=== PATIENT | male | born 1995 | race Caucasian/White ===

== ENCOUNTER → 2023-10-24 12:45 | Outpatient (BNV) | payer OTHER, SELFPAY | PROVIDERS: Visit Provider Psychiatry & Neurology Psychiatry | DX: F31.77 Bipolar disorder, in partial remission, most recent episode mixed (principal); E71.43 Iatrogenic carnitine deficiency; R74.01 Elevation of levels of liver transaminase levels; F99 Mental disorder, not otherwise specified | CPT/HCPCS: 90792; 90832; 99213; 99214 ==

== ENCOUNTER 2023-10-25 12:43 | Outpatient (REF) | payer OTHER, SELFPAY ==
[2023-10-25 13:04] LABS: MANUAL DIFF FLAG NO
[2023-10-25 13:45] LABS: Estimated Average Glucose 108 mg/dL; Hemoglobin A1C 130.6057 umol/L; Hemoglobin A1c % 5.4 % (<6.0)
[2023-10-25 13:46] LABS: Basophils Percent Auto 0.5 % (0-2); Eosinophils Percent Auto 0.7 % (0-4); Hematocrit 41.6 % (42.0-52.0); Imm Gran Abs Auto 0.08 X10*3/uL (0.00-0.03); Imm Gran Pct Auto 1.4 % (0.0-0.4); Lymphocytes Absolute Auto 2.1 X10*3/uL (1.2-4.9); Lymphocytes Percent Auto 35.6 % (20-40); Mean Corpuscular HGB Conc 36.1 g/dl (31.0-36.0); Mean Corpuscular Hemoglobin 29.9 pg (27.0-33.0); Monocytes Absolute Auto 0.5 X10*3/uL (0.1-1.2); Neutrophils Absolute Auto 3.2 x10*3/uL (2.0-8.3); Neutrophils Percent Auto 53.8 % (45-73); Platelet Count 247 X10*3/uL (160-400); Red Blood Count 5.01 X10*6/uL (4.60-5.80); Red Cell Distribution Width 11.9 % (11.0-16.0); White Blood Count 5.9 X10*3/uL (4.8-10.8)
[2023-10-25 14:32] LABS: Alanine Aminotransferase 156 U/L (0-40); Albumin Level 4.5 g/dL (3.5-5.0); Alkaline Phosphatase 74 U/L (39-117); Anion Gap 15 (12-20); Aspartate Amino Transferase 69 U/L (5-37); Blood Urea Nitrogen 11 mg/dL (9-16); Calcium 9.9 mg/dL (8.4-10.2); Carbon Dioxide 23 mmol/L (22-29); Chloride 105 mmol/L (96-108); Cholesterol 229 mg/dL (<200); Estimated Glomerular Filt Rate > 60; Glucose Fasting 90 mg/dL (60-99); HDL Cholesterol 39 mg/dL (>40); LDL Cholesterol Calculated 131 mg/dL (<100); Magnesium 1.9 mg/dL (1.6-2.6); Potassium 4.2 mmol/L (3.3-5.1); Sodium 139 mmol/L (135-145); Total Protein 7.4 g/dL (6.5-8.0); Triglycerides 299 mg/dL (<150); Valproate 77.6 mcg/mL (50.0-100.0)
[2023-10-25 14:50] LABS: Free T4 (Free Thyroxine) 0.92 ng/dL (0.71-1.85); Thyroid Stimulating Hormone 0.95 uIU/mL (0.32-4.0)
[2023-10-25 14:57] LABS: Folate 12.2 ng/mL (> or = 4.0); Vitamin B12 549 pg/mL (200-900)
[2023-10-26 10:15] LABS: Syphilis Screen Nonreactive (Nonreactive)
[2023-10-26 10:36] LABS: HBS Num1 0.35 mIU/mL (0-7.99); HBc Num1 0.17 S/CO (0.00-0.79); HBsAGNum1 0.26 S/CO (0.00-0.99); HIV AB/AG Nonreactive (Nonreactive); HIV Num 1 0.04 S/CO (0.00-0.99); Hepatitis B Core Antibody Nonreactive (Nonreactive); Hepatitis B Surface Antigen Negative (Negative); ~Hepatitis B Surface Antibody NONREACTIVE (Nonreactive); ~Hepatitis C Antibody Nonreactive (Nonreactive)
[2023-10-30 18:13] LABS: Carnitine Esters 6 umol/L (4-15); Carnitine, Free 11 umol/L (23-59); Carnitine, Total 17 umol/L (30-70); Esterified/Free 0.55 umol/L (0.12-0.39)
== END 2023-10-25 12:44 | disposition home or self-care (01) ==
LOC: HO.LAB 12:43
PROVIDERS: Visit Provider Psychiatry & Neurology Psychiatry
DX: F31.0 Bipolar disorder, current episode hypomanic (principal)
CPT/HCPCS: 36415; 80053; 80061; 80164; 82306; 82379; 82607; 82746; 83036; 83735; 84439; 84443; 85025; 86704; 86706; 86780; 86803; 87340; 87389

== ENCOUNTER 2023-11-08 14:45 | Outpatient (REF) | payer OTHER, SELFPAY ==
[2023-11-08 15:31] LABS: Prothrombin Time 11.8 SEC (11.1-13.3)
[2023-11-08 16:07] LABS: Alanine Aminotransferase 70 U/L (0-40); Albumin Level 4.5 g/dL (3.5-5.0); Alkaline Phosphatase 70 U/L (39-117); Aspartate Amino Transferase 34 U/L (5-37); Bilirubin Direct 0.2 mg/dL (0.0-0.5); Bilirubin Total 0.7 mg/dL (0.0-1.0); C Reactive Protein 0.12 mg/dL (< or = 0.50); Gamma Glutamyl Transpeptidase 196 U/L (11-51); Iron 82 mcg/dL (45-160); Percent Iron Saturation 23 % (15-50); Total Iron Binding Capacity 356 mcg/dL (228-428); Total Protein 7.5 g/dL (6.5-8.0); Unsaturated Iron Binding 274 ug/dL
[2023-11-08 16:21] LABS: Ferritin 175 ng/mL (20-250)
[2023-11-08 19:03] LABS: Erythrocyte Sedimentation Rate 2 MM/HR (0-15)
[2023-11-11 04:33] LABS: Hepatitis A Antibody IgG REACTIVE (Nonreactive); ~Hepatitis A Antibody IgG 1.22 S/CO (0.00-0.99)
[2023-11-11 16:18] LABS: Alpha 1 Anti-trypsin 104 mg/dL (83-199)
[2023-11-12 09:09] LABS: Myoglobin,Serum 26 mcg/L (<=95)
[2023-11-12 12:18] LABS: Copper, plasma 67 mcg/dL (70-175)
[2023-11-12 13:44] LABS: Alpha Fetoprotein 2.1 ng/mL (<6.1)
[2023-11-12 13:52] LABS: Mitochondrial Antibodies NEGATIVE (NEGATIVE)
[2023-11-14 13:42] LABS: Smooth Muscle Antibody <20 U (<20)
== END 2023-11-08 14:46 | disposition home or self-care (01) ==
LOC: HO.LAB 14:45
PROVIDERS: Visit Provider Psychiatry & Neurology Psychiatry
DX: F31.9 Bipolar disorder, unspecified (principal); R74.01 Elevation of levels of liver transaminase levels
CPT/HCPCS: 36415; 80076; 82103; 82105; 82525; 82550; 82728; 82977; 83540; 83874; 85610; 85652; 86015; 86140; 86381; 86708

== ENCOUNTER 2023-11-13 14:21 | Outpatient (REF) | payer OTHER, SELFPAY ==
[2023-11-13 14:49] LABS: Ammonia 54 umol/L (13-55)
== END 2023-11-13 14:22 | disposition home or self-care (01) ==
LOC: HO.LAB 14:21
PROVIDERS: Visit Provider Psychiatry & Neurology Psychiatry
DX: F31.9 Bipolar disorder, unspecified (principal); R74.01 Elevation of levels of liver transaminase levels
CPT/HCPCS: 36415; 82140

== ENCOUNTER 2023-11-14 12:15 | Outpatient (RCR) | payer OTHER, SELFPAY ==
--- NOTE | 2023-10-22 12:58 | PC.NURSE ---
Addendum entered by Nanci Nguyen RN 10/22/23 13:00: Wrong patient. Original Note: Mikhail stated he needs to leave early as his mother is not feeling well. He plans on attending the program tomorrow. [facility] staff is aware.
--- NOTE | 2023-10-22 16:10 | HO.PHP ---
[facility] staff member contacted Mikhail to follow up to see if he will be attending program tomorrow. Mikhail disclosed that he will be in attendance to program tomorrow. [facility] staff member assessed safety, in which he reported no concerns around SI, plan or intent.
[2023-10-23 14:34] VITALS: BP 111/80; PULSE 106; RESP 12; TEMP 36.4
--- NOTE | 2023-10-23 14:36 | PC.NURSE ---
Mikhail is a 28 /y/o male who was referred to [facility] from his Psychiatrist for increased depression and bipolar disorder. He has had several inpatient admits at [facility] in Jun 2023 and Jul-August 2023. Mikhail is alert and oriented x 4, no acute distress, well groomed and cooperative. Mikhail will reply to questions with one or two word answers and with little eye contact. Speech is clear, soft, posture is tense and guarded. Mikhail reports he was diagnosed with bipolar approx 6 years ago and has recently had a tough time and a lot of ups and downs . He denies pain and reports has been compliant with current med regime. His current support system is his mother and he states he has had group therapy in the past that has helped. He denies thoughts of SI and denies plan or intent.
--- NOTE | 2023-10-24 16:50 | HO.PHP ---
Client's case has been opened and reviewed in treatment team.
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
--- NOTE | 2023-10-25 16:38 | HO.PHP ---
PHP staff member faxed over a referral for Med management and OP therapy for Mikhail at the [facility] location. PHP staff member is awaiting a call back with the appointment dates and times.
--- NOTE | 2023-10-28 15:25 | HO.PHP ---
[facility] staff member received a voicemail from Mikhail stating that he would not be in attendance to program today due to a family emergency. [facility] staff member followed up with Mikhail, in which he reported no safety concerns and stated he will be in the program tomorrow.
--- NOTE | 2023-10-30 08:43 | HO.PHP ---
PHP staff member received a phone call from Mikhail who stated that he is running late to program due to the next bus not coming till later. Mikhail stated he will be in attendance to program a little after 9:30 AM. [facility] staff member was receptive.
--- NOTE | 2023-10-30 14:44 | HO.PHP ---
Mikhail never presented to group one, in which [facility] staff member reached out to Mikhail on two separate occassions. A voicemail was left on Mikhail's phone encouraging him to call back or we will have to proceed with contacting his Emergency Contact. Mikhail never returned the phone call, in which a call was initiated to his Emergency Contact. Mikhail's Emergency Contact also did not answer the phone and a VM was left noting our concern due to Mikhail not showing up to program when he stated he was on his way. Mikhail's emergency contact never returned the phone call. [facility] staff member was about to initiate a wellness check when Mikhail called. Mikhail informed [facility] staff that he wasn't going to make it to program for the 9:45 AM time. [facility] staff member assessed safety, in which he reported no SI, plan or intent. Mikhail will be in attendance to [facility] tomorrow.
--- NOTE | 2023-11-01 11:54 | PC.NURSE ---
Patient moved to this area a few months ago from [place]. PCP providers in this area do not take his insurance and I was told he would need to change his insurance in order to get a PCP in this area. Mikhail is aware and agreed to meet with financial assistance to talk about insurance options. I called and left financial assistance a message to call me back.
--- NOTE | 2023-11-01 23:44 | HO.PHPPROGNO ---
Subjective Subjective Date of Service: 11/01/23 Reason For Visit: bipolar Interim History: Patient seen for follow up. He reports no major issues. Has found program helpful, his first time engaging in a program. Says he has been working on Specifically my anger and healthy coping and meds. Mood is good, anger under control. Depression not too much . Denies SI. We reviewed his lab work, VPA level therapuetic at 77, but he has deranged LFTs . He denies a I share my concerns that the VPA could be causing toxic liver injury, especially that seeing that the VPA is likes driving a carnitine deficiency. He shares that he had had some lab work done at his PCP recently and there was something about liver changes but said he thought this was just one marker that was mildly elevated and suspects the numbers now sound much higher. His provider said they would monitor. He agrees to trialling oxcarbazepine to see if he tolerates. He is also on Seroquel, which we will maintain for now. He has signed MARLYS so we will see if we can retrieve the last set of labs to see if there has been any significant change. Will also plan to check related labs, rule out other causes of liver disease (Hep panel, HIV). Patient does not have any partticular risk factors per reported history. All lab results reviewed. Other considerations including carbamazepine vs FGA (vs switching SGA) if oxcarbazepine inadequately manages mood/shelly/anger. Sleep, appetite, energy intact. Appears to be mentating at baseline. Denies any problems on ROS. Risks, benefits and potential side effects of oxcarbamazepine reviewed including risks for dizziness, drowsiness, AMS, GI sx, hypernatremia, rashes/SJS, allergic reactions, and risk of inducing seizure upon sudden cessation/withdrawal from medication. Medication Compliance: Yes Side effects from medications: No Attending Groups: Yes Review of Systems Acute medical concerns: Yes As noted, regarding lab work findings which were reviewed with patient Mental Status Exam Mental Status Exam Narrative: Alert, oriented, in no acute distress. Calm, cooperative, engaged. No psychomotor agitation or neurovegetative retardation. Eye contact maintained. Mood good , affect flat. Speech normal. Thought process linear, coherent, mild paucity. Thought content related to stressors, denies hopelessness, SI or HI. No paranoia or delusional content elicited. No evidence of psychosis. Insight and judgment - fair but adequate. 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 Routine lab work next week will follow up with Hep B panel, Hep A, C, HIV, Iron, NH4, YURI, ESR EKG, routine for baseline QTc for medication considerations UDS as indicated Continue to monitor closely Patient educated on: diagnosis, medication risk/benefits and medical condition Informed Consent: understands Reason for contiued partial hosp. stay Substantial Risk for: inability to function, rapid decompensation and med/psych decompensation Certification I certify that partial hospital treatment is medically necessary due to the symptoms and problems resulting from the patient's mental illness and the failure to treat the patient at the partial hospital level of care would likely result in the patient requiring inpatient psychiatric care which could not be prevented at a less intensive level of care. Total time managing care of this patient today __30__ minutes. Discharge Plan Discharge Attending provider: Kaylyn Roberts Medications: New oxcarbazepine 300 mg tablet 300 mg PO BID Qty: 20 0RF L-Carnitine 500 mg tablet See Rx Instructions .ROUTE .COMPLEX Qty: 30 0RF Rx Instructions: must administer with a meal/food; start taking once daily in PM for 8 days, then increase to twice daily (in AM and PM) No Action divalproex [Depakote ER] 500 mg Tablet Extended Release 24 Hr 1,000 mg PO DAILY divalproex [Depakote ER] 500 mg Tablet Extended Release 24 Hr 500 mg PO DAILY MDD 1500 Stand Alone Forms: Patient Portal Discharge page Print Language: Guinean
--- NOTE | 2023-11-05 10:13 | HO.PHP ---
PHP staff member received a phone call from Fiona at [facility] with Mikhail's OP provider appointment. Mikhail's OP therapy Intake appointment is scheduled on November 12, 2023 at 10 AM with Phylicia Espino at [address] [place] [address]. Mikhail's med management appointment is scheduled for December 09, 2023 at 11 AM with Linda Boogie via telehealth.
--- NOTE | 2023-11-05 13:18 | PC.NURSE ---
New PCP appointment on Wednesday March 06, 2024 at 4:00 pm at [facility]. [address] [place] [address]. Office Number to call [phone]. It was recommended that if he wanted a sooner appointment he can call the office as they stated they do have cancellations, Mikhail is aware.
--- NOTE | 2023-11-05 23:14 | P.PNPSP_ITS ---
Subjective Subjective Date of Service: 11/05/23 Reason For Visit: bipolar Interim History: Patient reports having a relaxing long weekend. Says he didnt do much. Says he has had some thoughts about the treatment plan and medication changes we discussed which included trying to lower his Depakote and starting on Trileptal. Dont take this personally, but I have a hard time changing medication. I just get nervous. I've had problems in the past with things getting changed...I've been on Depakote a long time...done so good on it. I'm nervous about changing things or going off of it . He mentions that his previous provider had tried putting him on lithium but he refused and instead agreed to Depakote, saying he did not want anything that would cause harm to any of his organs. Upon inquiry, he says he was unaware that Depakote could cause liver injury, and said that there were no side effects that were relayed to him when he was started on this medication. He expresses dismay and confusion about this. No one ever told me that Depakote can affect your liver?! He shares that one of his doctors recently mentioned something about his liver function being elevated in the past couple months and that they were just taking a wait and watch approach, but says no one had ever mentioned to him that Depakote could cause liver problems or could be aggravating the problem. He was understandably frustrated about medications and doctors in general. I provided empathic listening and support. I explained that many psychiatric medications come with a host of potential risks and adverse effects - and aside from reviewing these with our patients (as well as weighing out the risks and benefits of treatment vs risks and benefits non-treatment) it is the standard of practice for providers to be monitoring our patients for these potential risks and outcomes. We review his lab work from last week which is noted for elevated transaminases as well as carinitine deficiency. We agree to plan that I reach out to his provider to gather more information and see if we can obtain a copy of his previous lab work, which the patient greatly appreciates. Medication Compliance: Yes Side effects from medications: No Attending Groups: Yes Review of Systems Acute medical concerns: No Mental Status Exam Mental Status Exam Narrative: Alert, oriented, in no acute distress. Reserved, cooperative, engaged. Stilted communication style. No psychomotor agitation or neurovegetative retardation. Eye contact maintained. Mood anxious, angry, affect flat, irritable edge, intense for a few minutes without notable lability . Speech normal. Thought process linear, coherent. Thought content related to stressors, denies hopelessness, SI or HI. No paranoia or delusional content elicited. No evidence of psychosis. Insight and judgment - fair but adequate. 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) and related to evolving liver injury with carnitine depletion (carnitine helps protect the liver from oxidative stress) I suspect the recent elevation in LFTs emerged as carnitine was slowly depleted over the past 6 years on VPA) No hx of etoh or drug abuse, or hepatic injury, other known risk factors of hepatic disease, (except perhaps obesity) Will start L-carnitine 500 mg qd (initially with food for better tolerance, then take without food for better absorption) Follow-up lab work ordered including GGT, also rule out other possible causes for LFT derangement, Fe, Cu, a1AT, as well as remaining Hep panel EKG, routine for baseline QTc for medication considerations UDS as indicated Continue to monitor as per protocol Patient educated on: diagnosis, medication risk/benefits and other Informed Consent: understands Reason for contiued partial hosp. stay Substantial Risk for: rapid decompensation and med/psych decompensation Certification I certify that partial hospital treatment is medically necessary due to the symptoms and problems resulting from the patient's mental illness and the failure to treat the patient at the partial hospital level of care would likely result in the patient requiring inpatient psychiatric care which could not be prevented at a less intensive level of care. Total time managing care of this patient today _40___ minutes. Discharge Plan Discharge Attending provider: Kaylyn Roberts Additional Instructions: Mikhail's OP therapy Intake appointment is scheduled on November 12, 2023 at 10 AM with Phylicia Espino at [address] [place] [address]. Mikhail's med management appointment is scheduled for December 09, 2023 at 11 AM with Linda Boogie via telehealth. New PCP appointment on Wednesday March 06, 2024 at 4:00 pm at [facility]. [address] [place] [address]. Office Number to call [phone]. Prior to appointment fax previous medical records to [phone]. It was recommended that if he wanted a sooner appointment he can call the office as they stated they do have cancellations, Mikhail is aware. Medications: New L-Carnitine 500 mg tablet See Rx Instructions .ROUTE .COMPLEX Qty: 30 0RF Rx Instructions: must administer with a meal/food; start taking once daily in PM for 8 days, then increase to twice daily (in AM and PM) quetiapine 200 mg tablet extended release 24 hr 200 mg PO QPM Qty: 14 0RF Rx Instructions: =Dose Increase= quetiapine 400 mg tablet 400 mg PO BEDTIME 30 Days Qty: 30 0RF Continued divalproex [Depakote ER] 500 mg Tablet Extended Release 24 Hr 1,000 mg PO DAILY 30 Days Qty: 60 0RF Discontinued divalproex [Depakote ER] 500 mg Tablet Extended Release 24 Hr 500 mg PO DAILY MDD 1500 Stand Alone Forms: Patient Portal Discharge page Patient Education: Bipolar Disorder (DC) Print Language: Turkmen
--- NOTE | 2023-11-07 23:28 | P.PNPSP_ITS ---
Subjective Subjective Date of Service: 11/07/23 Reason For Visit: bipolar Interim History: Patient requested follow up with provider. He says he tried reaching out to his provider but has not heard back yet. (I also left a message today during our meeting). He says he has had some thoughts about things and says he is now agreeable to making medication changes, and is agreeable to lowering the dose of Depakote. He says he feels more inclined since realizing that he would not be following up with his provider (who is in [facility]) and thus these medication changes would end up being managed by a new provider anyways. He says other than his concerns about medications and liver issues, his mood has been stable and denies any other acute concerns at this time. He is planning to get the lab work done in the morning and will be picking up the carnitine and getting started on this as well. Medication Compliance: Yes Side effects from medications: No Attending Groups: Yes Review of Systems Acute medical concerns: No Mental Status Exam Mental Status Exam Narrative: Alert, oriented, in no acute distress. Calm, cooperative, engaged, reserved, polite. No psychomotor agitation or neurovegetative retardation. Eye contact maintained. Mood okay , affect constricted, less irritable. Speech normal. Thought process linear, coherent, mild paucity. Thought content related to stressors, denies hopelessness, SI or HI. No paranoia or delusional content elic ited. No evidence of psychosis. Insight and judgment fair but adequate. 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 Assessment and Plan: other chronic psychotic illness (paranoia) that persists outside of bipolar episodes r/o Schizoaffective Disorder r/o developmental disorder (4) Transaminitis: Status: Acute Code(s): R74.01 - Elevation of levels of liver transaminase levels Assessment and Plan: likely due to VPA treatment and subsequent carnitine depletion will rule out no other comorbid causes of hepatic injury (5) 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: Status: Acute Code(s): E71.43 - Iatrogenic carnitine deficiency Assessment and Plan: will r/o other causes, but most likely due to VPA Plan Reviewed labwork - elevated transaminases, carnitine deficiency - concerning for liver injury patient agreeable to lowering Depakote ER from 1500 mg to 1000 mg/d (patient declined starting new mood stabilizer at this time, but is willing to titrate quetiapine in the meantime) he understand quetiapine also has liver risks (albeit less than VPA) so as transitional/temporary solution until he has more time for consideration continue L-carnitine supplementation - starting at 500 mg qd w meals, will gradually titrate to 1-2 gm/d in split doses (eventually on empty stomach as tolerated, given better absorption) decrease Depakote ER to 1000 mg qhs increase Seroquel from 400 mg to 600 mg/d (will order the addition 200 mg as ER formulation, to take in the evening with his usual 400 mg tablet) will also bump up the PRN lorazepam 0.5 mg from qd-bid dosing to BID-TID dosing, especially for over weekend while we make med adjustemnts continue Seroquel 400 mg qhs continue other regular medications? Routine lab work from 10/24 reviewed - will start vitamin D as well as carnitine supplementation for deficiencies Also received lab work from provider's office which demonstrates evolving hypertransaminemia, I reviewed findings with patient today Will order labs - Hep A, AI hepatitis, Fe, Cu, CK and other relevant lab work EKG - received series of EKG done over past 2 yrs from OP provider, most recent EKG from 06/2023 w no significant findings or changes from previous UDS as indicated Continue to monitor closely Patient educated on: diagnosis, medication risk/benefits and medical condition Informed Consent: understands Reason for contiued partial hosp. stay Substantial Risk for: rapid decompensation and med/psych decompensation Certification I certify that partial hospital treatment is medically necessary due to the symptoms and problems resulting from the patient's mental illness and the failure to treat the patient at the partial hospital level of care would likely result in the patient requiring inpatient psychiatric care which could not be prevented at a less intensive level of care. Total time managing care of this patient today __30__ minutes. Discharge Plan Discharge Attending provider: Kaylyn Roberts Additional Instructions: Mikhail's OP therapy Intake appointment is scheduled on November 12, 2023 at 10 AM with Phylicia Espino at [address] [place] [address]. Mikhail's med management appointment is scheduled for December 09, 2023 at 11 AM with Linda Boogie via telehealth. New PCP appointment on Wednesday March 06, 2024 at 4:00 pm at [facility]. [address] [place] [address]. Office Number to call [phone]. Prior to appointment fax previous medical records to [phone]. It was recommended that if he wanted a sooner appointment he can call the office as they stated they do have cancellations, Mikhail is aware. Medications: New L-Carnitine 500 mg tablet See Rx Instructions .ROUTE .COMPLEX Qty: 30 0RF Rx Instructions: must administer with a meal/food; start taking once daily in PM for 8 days, then increase to twice daily (in AM and PM) quetiapine 200 mg tablet extended release 24 hr 200 mg PO QPM Qty: 14 0RF Rx Instructions: =Dose Increase= quetiapine 400 mg tablet 400 mg PO BEDTIME 30 Days Qty: 30 0RF Continued divalproex [Depakote ER] 500 mg Tablet Extended Release 24 Hr 1,000 mg PO DAILY 30 Days Qty: 60 0RF Discontinued divalproex [Depakote ER] 500 mg Tablet Extended Release 24 Hr 500 mg PO DAILY MDD 1500 Stand Alone Forms: Patient Portal Discharge page Patient Education: Bipolar Disorder (DC) Print Language: Chinese
--- NOTE | 2023-11-08 14:42 | PC.NURSE ---
Karina from [facility] called and stated our patient Mikhail is outside sitting on a bench outside the main hospital waiting to get lab work done and is staring at people making them feel uncomfortable. I went to see Mikhail to check in on him. He stated they are taking things way out of proportion. He is feeling anxious about getting lab work and sitting on the bench outside until he feels better. He stated he realizes he can get paranoid at times and just needed to sit for a while before he gets lab work. He stated he needs to get his lab work done today before he has medication changes. He has not had any medication changes currently. I asked him if he wanted me to walk with him to the lab and he stated he is able to do this on his own he just needed to sit outside for a while before he gets lab work done. He again reiterated they are blowing things way out of proportion. He stated he wanted to get the lab work done today as he is already here and lives far away from the program. I asked if he was going to be ok and he stated he was. Camden oCllins from [employer]
--- NOTE | 2023-11-11 23:11 | P.PNPSP_ITS ---
Subjective Subjective Date of Service: 11/11/23 Reason For Visit: bipolar Interim History: Patient seen for follow-up, anticipates discharge at the end of the day. Feeling good . Patient reports that his mood remains stable. Depakote was lowered to 1000 mg/day and Seroquel is up to 600 mg at night. He feels less anxious with making these changes, says he is just really focussed on minimizing the amount of Depakote he is on given elevation in LFTs and says it is his goal to see if he can continue to transition off the Depakote and onto another medication that wont impact his liver. For now he is happy with the lower dose of Depakote and says he will continue with current doses of VPA and Seroquel until he sees his provider. He reports mood is great and irritability a lot better . Depression severity improved from a 4 to a 2 out of 10. Irritability and anxiety both improved from a 5 to a 3 out of 10. He says anger is what destroyed my life and what he calls righteous indignation says he is learning to manage this. He denies any SI, HI, AH, VH. Sleep is good , appetite and energy are stable. Medication Compliance: Yes Side effects from medications: No Attending Groups: Yes Review of Systems Acute medical concerns: No Mental Status Exam Mental Status Exam Narrative: Alert, oriented, in no acute distress. Calm, cooperative, polite. Mood stable, affect appropriate. Speech normal. Thought process linear, coherent, more goal- directed. Thought content related to stressors, future-oriented, denies any helplessness, hopelessness or SI.? No aggressive ideation or HI. No paranoia or delusional content elicited. No evidence of psychosis. Insight and judgment fair-good. 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: Status: Acute Code(s): E71.43 - Iatrogenic carnitine deficiency (3) Transaminitis: Status: Acute Code(s): R74.01 - Elevation of levels of liver transaminase levels (4) Mental disorder: Status: Acute Code(s): F99 - Mental disorder, not otherwise specified Assessment and Plan: Autism Spectrum Disorder vs cluster A traits (ie paranoid personality) Plan Discharge from [facility] Continue regular medications Refills sent to pharmacy Will defer further medication management to outpatient provider *Safety plan reviewed *Discharge Diagnoses reviewed with patient, along with treatment course, discharge plan (including medication regime, medication management, potential side effects) as well as treatment rationale were also revisited *Discharge paperwork signed and given to patient, copy sent for scanning to chart Certification I certify that partial hospital treatment is medically necessary due to the symptoms and problems resulting from the patient's mental illness and the failure to treat the patient at the partial hospital level of care would likely result in the patient requiring inpatient psychiatric care which could not be prevented at a less intensive level of care. Total time managing care of this patient today ____ minutes. Discharge Plan Discharge Attending provider: Kaylyn Roberts Additional Instructions: Mikhail's OP therapy Intake appointment is scheduled on November 12, 2023 at 10 AM with Phylicia Espino at [address] [place] [address]. Mikhail's med management appointment is scheduled for December 09, 2023 at 11 AM with Linda Boogie via telehealth. New PCP appointment on Wednesday March 06, 2024 at 4:00 pm at [facility]. [address] [place] [address]. Office Number to call [phone]. Prior to appointment fax previous medical records to [phone]. It was recommended that if he wanted a sooner appointment he can call the office as they stated they do have cancellations, Mikhail is aware. Medications: New L-Carnitine 500 mg tablet See Rx Instructions .ROUTE .COMPLEX Qty: 30 0RF Rx Instructions: must administer with a meal/food; start taking once daily in PM for 8 days, then increase to twice daily (in AM and PM) quetiapine 200 mg tablet extended release 24 hr 200 mg PO QPM Qty: 14 0RF Rx Instructions: =Dose Increase= quetiapine 400 mg tablet 400 mg PO BEDTIME 30 Days Qty: 30 0RF Continued divalproex [Depakote ER] 500 mg Tablet Extended Release 24 Hr 1,000 mg PO DAILY 30 Days Qty: 60 0RF Discontinued divalproex [Depakote ER] 500 mg Tablet Extended Release 24 Hr 500 mg PO DAILY MDD 1500 Stand Alone Forms: Patient Portal Discharge page Patient Education: Bipolar Disorder (DC) Print Language: Peruvian Telehealth Telehealth Telehealth Platform: Other (please specify) Location of provider rendering services: other (private office) Location of patient: other ([facility] Patient Identification confirmed using: Name, : Yes Telehealth method: video Patient verbally consented to treatment: Yes
--- NOTE | 2023-11-12 10:07 | HO.PHP ---
Mikhail was not scheduled today due to having an intake appointment through [facility].
--- NOTE | 2023-11-14 22:15 | P.PNPSP_ITS ---
Subjective Subjective Date of Service: 11/14/23 Reason For Visit: bipolar Interim History: Patient seen for follow-up, anticipating discharge at the end of program today.? No changes in the past few days, continues to do well with medicaiton changes. Reports no acute issues or concerns. Medication compliant, medications well- tolerated. Denies any adverse effects.? Mood is stable.? Denies any hopelessness or SI. Denies thoughts of harming self or others at this time. Denies any aggressive ideation or HI. Denies any paranoia or AH or VH. Sleep, appetite, energy stable. Medication Compliance: Yes Side effects from medications: No Attending Groups: Yes Review of Systems Acute medical concerns: No Mental Status Exam Mental Status Exam Narrative: Alert, oriented, in no acute distress. Calm, cooperative. Mood stable, affect appropriate. Speech normal. Thought process linear, coherent, more goal- directed. Thought content related to stressors, future-oriented, denies any helplessness, hopelessness or SI.? No aggressive ideation or HI. No paranoia or delusional content elicited. No evidence of psychosis. Insight and judgment fair-good. 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: Status: Acute Code(s): E71.43 - Iatrogenic carnitine deficiency (3) Transaminitis: Status: Acute Code(s): R74.01 - Elevation of levels of liver transaminase levels (4) Mental disorder: Status: Acute Code(s): F99 - Mental disorder, not otherwise specified Assessment and Plan: r/o ASD r/o cluster A traits Plan Discharge from [facility] Continue regular medications Refills sent to pharmacy Will defer further medication management to outpatient provider *Safety plan reviewed *Discharge Diagnoses reviewed with patient, as well as treatment course, discharge plan (including medication regime, medication management, potential side effects) as well as treatment rationale were also revisited Patient educated on: diagnosis and medication risk/benefits Informed Consent: understands Reason for contiued partial hosp. stay Substantial Risk for: med/psych decompensation Certification I certify that partial hospital treatment is medically necessary due to the symptoms and problems resulting from the patient's mental illness and the failure to treat the patient at the partial hospital level of care would likely result in the patient requiring inpatient psychiatric care which could not be prevented at a less intensive level of care. Total time managing care of this patient today __30__ minutes. Discharge Plan Discharge Attending provider: Kaylyn Roberts Additional Instructions: Mikhail's OP therapy Intake appointment is scheduled on November 12, 2023 at 10 AM with Phylicia Espino at [address] [place] [address]. Mikhail's med management appointment is scheduled for December 09, 2023 at 11 AM with Linda Boogie via telehealth. New PCP appointment on Wednesday March 06, 2024 at 4:00 pm at [facility]. [address] [place] [address]. Office Number to call [phone]. Prior to appointment fax previous medical records to [phone]. It was recommended that if he wanted a sooner appointment he can call the office as lenard varner stated they do have cancellations, Mikhail is aware. Medications: New L-Carnitine 500 mg tablet See Rx Instructions .ROUTE .COMPLEX Qty: 30 0RF Rx Instructions: must administer with a meal/food; start taking once daily in PM for 8 days, then increase to twice daily (in AM and PM) quetiapine 200 mg tablet extended release 24 hr 200 mg PO QPM Qty: 14 0RF Rx Instructions: =Dose Increase= quetiapine 400 mg tablet 400 mg PO BEDTIME 30 Days Qty: 30 0RF Continued divalproex [Depakote ER] 500 mg Tablet Extended Release 24 Hr 1,000 mg PO DAILY 30 Days Qty: 60 0RF Discontinued divalproex [Depakote ER] 500 mg Tablet Extended Release 24 Hr 500 mg PO DAILY MDD 1500 Stand Alone Forms: Patient Portal Discharge page Patient Education: Bipolar Disorder (DC) Print Language: Syrian
== END 2023-11-14 23:59 | disposition home or self-care (01) ==
LOC: HO.PHPA 12:15
PROVIDERS: Visit Provider Psychiatry & Neurology Psychiatry
DX: F31.77 Bipolar disorder, in partial remission, most recent episode mixed (principal); F63.89 Other impulse disorders; F60.0 Paranoid personality disorder; R74.01 Elevation of levels of liver transaminase levels; E71.43 Iatrogenic carnitine deficiency; Z79.899 Other long term (current) drug therapy
CPT/HCPCS: 90791; 90853

== ENCOUNTER 2024-01-17 19:49 | Emergency (ER) | payer OTHER, SELFPAY ==
[2024-01-17 20:15] VITALS: BP 153/87; PULSE 94; RESP 18; TEMP 36.6; O2SAT 97; BMI 38.4
--- NOTE | 2024-01-17 20:17 | ED_ITS ---
HPI - General Adult General Chief complaint: General Medical Stated complaint: out of meds Source: patient and RN notes reviewed Mode of arrival: ambulatory Limitations: no limitations History of Present Illness ED Provider: Ramya Key PA-C HPI narrative: This is a 28-year-old male, with a history of bipolar disorder, who presents emergency depart to refill. Patient is on valproate and Seroquel and states that he ran out of both these medications 2 days ago. He was seen psychiatrically and was admitted in November. He was discharged from here, and then had a another psychiatric admission at an outpatient facility. He presents with his prescription bottles, both of these medications that he was taking both valproate 500mg 4 tabs at night as well as Seroquel 300 mg 2 tablets at bedtime, written on December 12. Patient states that he is not seeing a psychiatrist until the end of the month. He states that he has had clammy hands, shakiness, slightly dizzy and slight depression. No SI or HI. No AH or VH. He is otherwise feeling well. Other complaints or concerns at this time. MD complaint: Med refill Onset (ago): day(s) Radiation: non-radiation Quality: aching Pain Consistency: constant Relieving factors: none Exacerbating factors: none Associated symptoms: denies other symptoms Treatments prior to arrival: none Related Data Previous Rx's ?Medication ?Instructions ?Recorded levocarnitine 500 mg tablet See Rx Instructions .Route 11/01/23 (L-Carnitine) .COMPLEX #30 tabs quetiapine 200 mg tablet,extended 200 mg PO QPM #14 tabs 11/07/23 release 24 hr divalproex 500 mg tablet,extended 1,000 mg (2 x 500 mg) PO DAILY 11/14/23 release 24 hr (Depakote ER) days #60 tabs quetiapine 400 mg tablet 400 mg PO BEDTIME 30 days #30 tabs 11/14/23 divalproex 500 mg tablet,extended 2,000 mg (4 x 500 mg) PO DAILY 30 01/17/24 release 24 hr days #120 tabs quetiapine 300 mg tablet 600 mg (2 x 300 mg) PO BEDTIME 30 01/17/24 days #60 tabs Allergies Allergy/AdvReac Type Severity Reaction Status Date / Time No Known Allergies Allergy Verified 01/17/24 20:21 Review of Systems Review of Systems: Yes all other systems are reviewed and are negative Constitutional: Constitutional: Reports as per [facility] Past Medical History Attestation statement: The following information was validated with the patient. Social History Social History Household Members: Family Patient Tobacco Use Status: Never used Tobacco Physical Exam ED Const General: cooperative, comfortable and no acute distress Orientation/consciousness: patient oriented x3 Limitations: no limitations HENMT Head: Yes normal to inspection, Yes normocephalic and Yes atraumatic Ears: hearing grossly normal bilaterally General nose exam: Normal external nose present Face and sinus: Yes normal facial exam Mouth: Normal oral and palatal mucosa present, oropharynx normal and moist mucous membranes Throat: Yes posterior oropharynx normal Eyes General: appearance normal, both eyes and all related structures Eyelids: Yes eyelids normal Conjunctivae: conjunctivae normal Sclerae: sclerae normal Pupils: Equal, round and reactive pupils present EOM: EOMs intact bilaterally Neck Neck: Yes normal visual inspection, Yes full ROM and Yes no lymphadenopathy Lymphatic: no lymphadenopathy noted Chest Chest palpation & inspection: normal inspection of the chest Resp Effort & Inspection: normal respiratory effort and able to speak in complete sentences Auscultation: clear to auscultation bilaterally, no crackles, no rales, no rhonchi and no wheezes Cardio Rate: regular rate Rhythm: regular rhythm Heart sounds: S1 normal heart sound present and S2 normal heart sound present GI Inspection: Yes normal to inspection Skin General skin exam: no rashes or lesions noted Trauma: no lacerations or abrasions Wounds: no wounds Neuro General: patient oriented x3 and moves all extremities Cranial nerves: Yes Equal, round and reactive pupils present Extrem General: Yes normal to inspection Right upper extremity: normal to inspection Left upper extremity: normal to inspection Right lower extremity: normal to inspection Left lower extremity: normal to inspection Medical Decision Making Medical Decision Making MDM Narrative: This is a 28-year-old male who presents emergency department for medication refill. On arrival, vital signs revealing slight hypertension at 153/87. He presents with his medication bottles that were empty. It is time for him to have a medication refill. These medications were discussed with my attending physician, Dr. Larson. No further workup indicated at this time. Will give medication refill. He has no chest pain or shortness for breath. Feeling slight shakiness and clamminess, likely starting have increasing anxiety. Will provide with medication refill, given strict return precautions. Patient understands agrees with plan. He has follow-up with the psychiatrist at the end of January. Patient stable for discharge. Differential Diagnosis Differential Diagnoses: The differential diagnosis associated with the presentation includes Med refill, anxiety, depression, withdrawal Admission/Observation Consideration of admission/observation: Escalation of care including admission/observation considered Discharge Plan Discharge Clinical Impression: Bipolar 1 disorder, mixed, partial remission Patient Disposition: Home, Self-Care Instructions: Bipolar Disorder (ED) Additional Instructions: You were seen in the emergency room for medication refill. I prescribed you both your medications. You need to take these as prescribed. Please follow-up with your psychiatrist. If any new or worsening symptoms occur including but not limited to worsening depression, chest pain, shortness for breath, dizziness, please return for re- evaluation. Prescriptions: New divalproex 500 mg tablet extended release 24 hr 2,000 mg PO DAILY 30 Days Qty: 120 0RF quetiapine 300 mg tablet 600 mg PO BEDTIME 30 Days Qty: 60 0RF No Action L-Carnitine 500 mg tablet See Rx Instructions .ROUTE .COMPLEX Qty: 30 0RF Rx Instructions: must administer with a meal/food; start taking once daily in PM for 8 days, then increase to twice daily (in AM and PM) quetiapine 200 mg tablet extended release 24 hr 200 mg PO QPM Qty: 14 0RF Rx Instructions: =Dose Increase= quetiapine 400 mg tablet 400 mg PO BEDTIME 30 Days Qty: 30 0RF divalproex [Depakote ER] 500 mg Tablet Extended Release 24 Hr 1,000 mg PO DAILY 30 Days Qty: 60 0RF Print Language: Tongan
[2024-01-17 20:29] VITALS: BP 153/87; PULSE 94; RESP 18; TEMP 36.6; O2SAT 97
== END 2024-01-17 20:31 | disposition home or self-care (01) ==
PROVIDERS: Emergency Provider Emergency Medicine Emergency Medical Services
DX: F31.77 Bipolar disorder, in partial remission, most recent episode mixed (principal); Z76.0 Encounter for issue of repeat prescription
CPT/HCPCS: 99282

== ENCOUNTER 2024-03-01 20:35 | Emergency (ER) | payer OTHER, SELFPAY ==
[2024-03-01 21:11] VITALS: BP 128/87; PULSE 93; RESP 18; TEMP 36.9; O2SAT 98; BMI 38.9
[2024-03-01 21:52] LABS: Hematocrit 44.9 % (42.0-52.0); Hemoglobin 15.6 g/dl (14.0-18.0); Mean Corpuscular HGB Conc 34.7 g/dl (31.0-36.0); Mean Corpuscular Hemoglobin 29.7 pg (27.0-33.0); Mean Corpuscular Volume 85.4 fL (80.0-98.0); Platelet Count 151 X10*3/uL (160-400); Red Blood Count 5.26 X10*6/uL (4.60-5.80); Red Cell Distribution Width 12.3 % (11.0-16.0); White Blood Count 6.3 X10*3/uL (4.8-10.8)
[2024-03-01 21:53] LABS: Appearance Urine Clear; Color Urine Yellow; Glucose Urine UA Negative (Negative); Leukocyte Esterase Urine Negative (Negative); Nitrite Urine Negative (Negative); PH 5.5 (5.0-9.0); Urine Blood Negative (Negative); Urine Ketones Trace mg/dL (Negative); Urine Protein Negative (Neg-Trace)
[2024-03-01 22:06] LABS: Amphetamine Screen Urine Not Detected (Not Detect); Barbiturates, Urine Not Detected (Not Detect); Benzodiazepines Screen Urine Not Detected (Not Detect); Buprenorphine Scr Not Detected (Not Detect); Cannabinoid Screen Urine Not Detected (Not Detect); Cocaine Screen Urine Not Detected (Not Detect); Fentanyl, urine Not Detected (Not Detect); Methadone Screen, Urine Not Detected (Not Detect); Opiate Screen Urine Not Detected (Not Detect); Oxycodone Screen Urine Not Detected (Not Detect); Phencyclidine Screen Urine Not Detected (Not Detect)
[2024-03-01 22:11] LABS: Valproate 73.8 mcg/mL (50.0-100.0)
[2024-03-01 22:20] LABS: Acetaminophen LAB < 3 mcg/mL (<30); Anion Gap 15 (12-20); Blood Urea Nitrogen 18 mg/dL (9-16); Calcium 10.1 mg/dL (8.4-10.2); Carbon Dioxide 24 mmol/L (22-29); Chloride 106 mmol/L (96-108); Creatinine Clr Calc Pharmacy 119.7; Estimated Glomerular Filt Rate > 60; Ethanol < 10 mg/dL; Glucose Random 88 mg/dL (60-115); Lithium < 0.10 mmol/L (0.60-1.20); Potassium 4.5 mmol/L (3.3-5.1); Salicylate < 5.0 mg/dL (15-30); Sodium 140 mmol/L (135-145)
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
[2024-03-01] MEDS: Divalproex Sodium ER 500 MG TAB.ER.24H 2000 MG PO (23:26)
[2024-03-01] MEDS: QUEtiapine Fumarate 300 MG TABLET 600 MG PO (23:27)
[2024-03-02 06:28] VITALS: RESP 16
--- NOTE | 2024-03-02 07:29 | PC.NURSE ---
Assumed care of patient at 0645. At this time the patient is eating breakfast in their room. No signs of distress observed.
[2024-03-02 08:23] VITALS: BP 125/75; PULSE 99; RESP 12; O2SAT 97
--- NOTE | 2024-03-02 12:26 | MHC.CARE ---
Faxed referral to [facility]
--- NOTE | 2024-03-02 15:43 | PC.NURSE ---
Nursing Communication Nurse to Nurse report given to [facility]. RN to call [facility] once patients own meds are brought to the Hospital by patients family. [facility] will then set-up an admission time.
[2024-03-02 17:47] VITALS: BP 125/75; PULSE 99; RESP 12; TEMP 37; O2SAT 97
== END 2024-03-02 17:54 | disposition home or self-care (01) ==
PROVIDERS: Emergency Provider Emergency Medicine
DX: F31.9 Bipolar disorder, unspecified (principal); Z79.899 Other long term (current) drug therapy
CPT/HCPCS: 36415; 80048; 80143; 80164; 80178; 80179; 80307; 81003; 85027; 99284; S9485

== ENCOUNTER 2025-02-10 11:30 | Outpatient (RCR) | payer OTHER, SELFPAY ==
--- NOTE | 2025-02-05 09:26 | PC.NURSE ---
Mikhail did not show up to first day of program. I called Mikhail who apologized stating he overslept and would not be able to make it in today. Mikhail denied any safety concerns. Stated he will be here on Saturday. [facility] staff is aware.
[2025-02-09 09:36] VITALS: BMI 36.6
[2025-02-09 09:37] VITALS: BP 116/70; PULSE 96; TEMP 36.4
--- NOTE | 2025-02-09 10:11 | PC.ADMIT ---
Patient is a 29 year old single male who was referred to [facility] by his psychiatric prescriber secondary to history of paranoia and anger. Patient reports that paranoia and anger have lessened since last year when he attended the program however stated he would like to work on this while he is in the program. He wants to be able to reality test. He reports when he feels he has been disrespected he becomes paranoid. Patient is currently living with his mother. Patient stated [place] the city he [place] and this was not a good environment for him. He stated he feels comfortable in this program with others who are struggling. Patient is alert and oriented x4. He is calm and cooperative. Thoughts are clear and logical. No paranoia noted during the assessment. Patient denied SI, no HI. He was given a copy of his safety plan if needed. Patient agrees to come to staff when feeling paranoid around others. Patient's medications updated with patient's pharmacy and patient. Patient stated he is taking mostly as prescribed, rarely forgets to take his medications. Patient denied any substance issues.
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
== END 2025-02-10 23:59 | disposition home or self-care (01) ==
LOC: HO.PHPA 11:30
PROVIDERS: Visit Provider Psychiatry & Neurology Psychiatry
DX: F31.77 Bipolar disorder, in partial remission, most recent episode mixed (principal); F63.89 Other impulse disorders; F60.0 Paranoid personality disorder; Z79.899 Other long term (current) drug therapy
CPT/HCPCS: 90791; 90853

== ENCOUNTER → 2025-02-10 11:30 | Outpatient (BNV) | payer OTHER, SELFPAY | PROVIDERS: Visit Provider Psychiatry & Neurology Psychiatry | DX: F31.77 Bipolar disorder, in partial remission, most recent episode mixed (principal); F63.89 Other impulse disorders; F60.0 Paranoid personality disorder | CPT/HCPCS: 90792 ==